=== PATIENT | male | born 1985 | race Caucasian/White ===

== ENCOUNTER 2020-05-27 18:57 | Inpatient (IN) ==
[2020-05-27] MEDS ORDERED: PROMETHAZINE 25 MG/1 ML VIAL IM PRN (20:54)
[2020-05-27] MEDS ORDERED: ALBUTEROL 2.5 MG/3 ML NEB RESP TX PRN (20:54)
[2020-05-27] MEDS: SODIUM CHLORIDE 0.9% 1,000 ML IV SCH (22:16)
[2020-05-28] MEDS ORDERED: PHENOL 1.4% THROAT SPRAY 177 ML BOTTLE PO PRN (02:00)
[2020-05-28] MEDS: ACETAMINOPHEN 325 MG TABLET PO PRN ×2 (07:33→20:06)
[2020-05-28] MEDS: SODIUM CHLORIDE 0.9% 1,000 ML IV SCH (07:52)
[2020-05-28] MEDS: PARoxetine 20 MG TABLET PO SCH (08:45)
[2020-05-28] MEDS: ENOXAPARIN 40 MG/0.4 ML SYRINGE SUBCUT SCH (08:53)
[2020-05-28] MEDS: ONDANSETRON 4 MG/2 ML VIAL IV PRN ×2 (14:18→20:09)
[2020-05-28] MEDS ORDERED: traZODone 50 MG TABLET PO SCH (21:00)
[2020-05-28] MEDS ORDERED: OLANZapine 5 MG TABLET PO SCH (21:00)
[2020-05-29] MEDS: PARoxetine 20 MG TABLET PO SCH (08:16)
[2020-05-29] MEDS: ENOXAPARIN 40 MG/0.4 ML SYRINGE SUBCUT SCH (08:20)
[2020-05-29] MEDS: ACETAMINOPHEN 325 MG TABLET PO PRN (08:20)
== END 2020-05-29 12:28 | disposition home or self-care (01) | DRG 918 ==
LOC: N.ICU 20:31 → SUATTDRO 20:31
PROVIDERS: ADMIT Phlebology; ATTEND Internal Medicine